=== PATIENT | female | born 1970 | race Two or more races ===

== ENCOUNTER → 2021-05-18 10:23 | Outpatient (BNVA) | payer OTHER, SELFPAY | PROVIDERS: PCP Internal Medicine; Visit Provider Nurse Practitioner Family ==

== ENCOUNTER → 2021-06-21 13:12 | Outpatient (BNVA) | payer OTHER, SELFPAY | PROVIDERS: PCP Internal Medicine; Visit Provider Nurse Practitioner Family ==

== ENCOUNTER → 2021-09-15 10:08 | Outpatient (BNVA) | payer OTHER, SELFPAY | PROVIDERS: PCP Physician Assistant Medical; Visit Provider Nurse Practitioner Family | DX: G43.909 Migraine, unspecified, not intractable, without status migrainosus (principal) ==

== ENCOUNTER → 2022-05-03 12:48 | Outpatient (BNVA) | payer OTHER, SELFPAY | PROVIDERS: PCP Physician Assistant Medical; Visit Provider Nurse Practitioner Family | DX: Z13.89 Encounter for screening for other disorder (principal) ==

== ENCOUNTER → 2022-07-26 07:58 | Outpatient (BNVA) | payer OTHER, SELFPAY | PROVIDERS: PCP Physician Assistant Medical; Visit Provider Nurse Practitioner Family | DX: Z13.89 Encounter for screening for other disorder (principal) ==

== ENCOUNTER → 2022-07-30 10:33 | Outpatient (REF) | payer OTHER, SELFPAY ==
--- NOTE | 2022-07-30 10:42 | ECG_ITS ---
Test Reason : r00.2 Blood Pressure : / mmHG Vent. Rate : 083 BPM Atrial Rate : 083 BPM P-R Int : 174 ms QRS Dur : 074 ms QT Int : 338 ms P-R-T Axes : 064 021 026 degrees QTc Int : 397 ms Normal sinus rhythm Nonspecific ST and T wave abnormality Abnormal ECG No previous ECGs available Referred By: Phyllis South Electronically Signed By:Binh Evans
== END ==
LOC: HO.CARD 10:33
PROVIDERS: PCP Physician Assistant Medical; Visit Provider Nurse Practitioner Family
DX: R00.2 Palpitations (principal)
CPT/HCPCS: 93005

== ENCOUNTER → 2022-08-07 09:27 | Outpatient (REF) | payer OTHER, SELFPAY ==
--- NOTE | 2022-08-07 09:31 | HM_ITS ---
Conclusion: 1. Patient was monitor for total period of 2 days 2. Baseline was normal sinus rhythm with average heart of 87 beats per minute 3. No significant pauses noted 4. Very rare ectopy noted 5. One SVT episode lasting 3 beats at 133 beats per minute 6. No patient reported events MTDD
== END ==
LOC: HO.CARD 09:27
PROVIDERS: PCP Physician Assistant Medical; Visit Provider Nurse Practitioner Family
DX: R00.2 Palpitations (principal); R94.31 Abnormal electrocardiogram [ECG] [EKG]
CPT/HCPCS: 93225

== ENCOUNTER → 2022-10-15 08:17 | Outpatient (BNVA) | payer OTHER, SELFPAY | PROVIDERS: PCP Physician Assistant Medical; Visit Provider Nurse Practitioner Family | DX: R00.2 Palpitations (principal) ==

== ENCOUNTER 2023-02-14 10:48 | Outpatient (AMB) | payer OTHER, SELFPAY ==
--- NOTE | 2023-02-14 10:49 | A.OFFVIS_ITS ---
Intake Vital Signs 02/14/23 10:54 Height 5 ft 4 in Weight 171 lb 8 oz BMI 29.4 BP 98/74 Blood Pressure Location Rt brachial Position Sitting Pulse 95 Pulse Source Pulse Oximeter Pulse Oximetry (%) 99 Oxygen Delivery Method Room Air Intake Visit Reasons: 4m follow up-Confirmed Intake Note: Patient presents for 4 month follow up. Patient states no issues or concerns today. Allergies Penicillins Allergy (Intermediate, Verified 02/14/23 10:56) unknown Medication List - Last Reconciled 02/14/23 by PATRICIA Her amitriptyline 100 mg PO BEDTIME baclofen 10 - 20 mg (1 - 2 x 10 mg) PO BEDTIME PRN 30 days dtoslsencb-lymvnznmzaoel-izvr 50-325-40 mg 1 tab PO q 8 hours prn 30 days cetirizine 10 mg PO DAILY PRN cholecalciferol (vitamin D3) mcg PO docusate sodium (Stool Softener) 100 mg PO DAILY galcanezumab-gnlm (Emgality Pen) 120 mg subcut ONCE 28 days hydroxyzine HCl 25 mg PO BEDTIME lactulose 10 grams PO BEDTIME levonorgestrel-ethinyl estrad 0.15 mg-30 mcg (91) (Setlakin) 1 tab PO DAILY lorazepam 0.5 mg PO DAILY PRN naproxen 500 mg PO BID riboflavin (vitamin B2) 100 mg PO DAILY sertraline 75 mg PO DAILY topiramate 50 mg (2 x 25 mg) PO DAILY 30 days venlafaxine ER 150 mg PO DAILY vitamin B complex (B Complex-Vitamin B12 tablet) 1 tab PO DAILY 30 days HPI HPI Comments History of Present Illness Details 52-yr-old female presents for f/u visit. Pt states that recent labs showed b-12 def and vit D def. She did a course of vit B-12 inj and high dose vit D- she has since transitioned to OTC b-12, vit d, and women's daily MVI. She states that since, she has been feeling better- nails are growing stronger, noting less hair loss, more energy, less lightheadedness. Her psychiatrist, Carlos ROSA, also increased her Amitriptyline from 75mg to 100mg qhs. She does admit that for a week, she accidentally took the 75mg w/ the 100mg- she only realized this when the pharmacist refused to refill the 75mg prescription. She notes she did not have any adverse effects during this time, just was able to sleep better. She is having less headaches and migraines. She continues to have good days and bad days. She wonders about doing Lasix for near vision tx- as the glasses bothers her face/nose. Her last eye exam was normal- no signs of papilledema. PFSH Surgical History Hx of cholecystectomy Family History Paternal Grandmother Ovarian cancer Social History Alcohol intake: never Patient Tobacco Use Status: Never used Tobacco Review of Systems Const All systems reviewed & are unremarkable except as noted in HPI and below Physical Exam Vital Signs: Last Vital Signs Pulse 95 02/14/23 10:54 BP 98/74 02/14/23 10:54 Pulse Ox 99 02/14/23 10:54 Oxygen Delivery Method Room Air 02/14/23 10:54 BMI result Body Mass Index 29.4 Const General: cooperative and no acute distress Orientation/consciousness: patient oriented x3 HEENT Head: Yes normocephalic Resp Effort & Inspection: normal respiratory effort and able to speak in complete sentences Neuro General: patient oriented x3, gait normal and CN's II-XI intact bilaterally Cognition (Neuro): normal cognition Motor exam (neuro): 5/5 motor strength present throughout Psych Appearance: grossly normal Mental Status: mental status grossly normal Speech and movement: Normal speech and movement present Affect: normal affect Attitude: cooperative Thought process: Normal thought process present Thought content: Normal thought content present Insight: Good insight present (Psych) Judgement: Good judgement present (Psych) Assessment & Plan Assessment & Plan (1) Migraine: Code(s): G43.909 - Migraine, unspecified, not intractable, without status migrainosus (2) Trigeminal neuralgia: Comment: Left facial, at times right facial. Failed Indomethacin trial of 225mg/day. Code(s): G50.0 - Trigeminal neuralgia (3) Idiopathic intracranial hypertension: Comment: On Topiramate. Previously failed Diamox. Code(s): G93.2 - Benign intracranial hypertension (4) Anxiety: Code(s): F41.9 - Anxiety disorder, unspecified Plan Brain MRI- stable. ? Continue Baclofen 10-20mg qhs for occipital headache and neck muscle spasm. Continue Vit B complex qam. Continue Venlafaxine per Psychiatry, this may be helping mood as well as headache symptoms. Continue Amitriptyline 100 mg at bedtime- now ordered by psych. Continue Emgality 120mg sc q month- for now. Continue topiramate 50 mg qhs Continue as needed Fioricet. Monitor cognition. F/u with psychotherapy and psychiatry. Pt again may benefit from trying neurofeedback or biodeedback tx. Future considerations- Ajovy, Botox. ? Follow-up with [facility] prn- pt not currently interested in trying a sphenopalatine ganglion block.. Patient has been advised to abstain from work through follow-up here in approximately 3-4 months. Medications: Changed From amitriptyline 75 mg (3 x 25 mg) PO BEDTIME 30 days 90 tabs 6RF To amitriptyline 100 mg PO BEDTIME Coding Level of Care Code Est Pt Level 4 (57925) Diagnoses Migraine G43.909 Trigeminal neuralgia G50.0 Idiopathic intracranial hypertension G93.2 Anxiety F41.9
[2023-02-14 10:54] VITALS: BP 98/74; PULSE 95; O2SAT 99; BMI 29.4
== END 2023-02-14 11:47 | disposition home or self-care (01) ==
PROVIDERS: PCP Physician Assistant Medical; Visit Provider Nurse Practitioner Family
DX: G43.909 Migraine, unspecified, not intractable, without status migrainosus (principal); G50.0 Trigeminal neuralgia; G93.2 Benign intracranial hypertension; F41.9 Anxiety disorder, unspecified
CPT/HCPCS: 99214

== ENCOUNTER → 2023-02-14 10:48 | Outpatient (BNVA) | payer OTHER, SELFPAY | PROVIDERS: PCP Physician Assistant Medical; Visit Provider Nurse Practitioner Family | DX: R00.2 Palpitations (principal); Q67.0 Congenital facial asymmetry; H57.10 Ocular pain, unspecified eye ==

== ENCOUNTER 2023-08-28 08:59 | Outpatient (AMB) | payer MEDICAID, SELFPAY ==
--- NOTE | 2023-08-28 09:21 | MHC.OFFVIS ---
Vital Signs 08/28/23 09:22 Height 5 ft 4 in Weight 155 lb 2 oz BMI 26.6 BP 98/58 L Blood Pressure Location Rt brachial Position Sitting Pulse 101 H Pulse Source Pulse Oximeter Pulse Oximetry (%) 98 Oxygen Delivery Method Room Air Intake Visit Reasons: 4 mnts f/u appt - Confirmed Intake Note: Patient presents for follow up0. patient wants to discuss medication change due to insurance change. Allergies Penicillins Allergy (Intermediate, Verified 08/28/23 09:23) unknown Medication List - Last Reconciled 08/28/23 by PATRICIA Her amitriptyline 100 mg PO BEDTIME baclofen 10 - 20 mg (1 - 2 x 10 mg) PO BEDTIME PRN 30 days lfywqthbqi-xxtntkdhqbgpo-xyha 50-325-40 mg 1 tab PO q 8 hours prn 30 days cetirizine 10 mg PO DAILY PRN cholecalciferol (vitamin D3) mcg PO docusate sodium (Stool Softener) 100 mg PO DAILY galcanezumab-gnlm (Emgality Pen) 120 mg subcut ONCE 28 days hydroxyzine HCl 25 mg PO BEDTIME lactulose 10 grams PO BEDTIME levonorgestrel-ethinyl estrad 0.15 mg-30 mcg (91) (Setlakin) 1 tab PO DAILY lorazepam 0.5 mg PO DAILY PRN naproxen 500 mg PO BID riboflavin (vitamin B2) 100 mg PO DAILY sertraline 75 mg PO DAILY topiramate 50 mg (2 x 25 mg) PO DAILY 30 days venlafaxine ER 150 mg PO DAILY vitamin B complex (B Complex-Vitamin B12 tablet) 1 tab PO DAILY 30 days HPI Comments Details: 52-yr-old female presents for f/u visit. Pt denies any significant interval medical changes. Patient had a change in insurance, and needs to establish care with a new PCP. Pt has not had her Emgality since Mar due to she needs new insurance PA as her insurance changed. She resumed it in early July, the Emgality is helping but not yet as effective as prior to Mar. However, she now realizes how effective it was when it was, and she was taking the Emgality regularly. She has since had an increase in her migraine days, in the last month she has had 3-4 headaches days. Noticing more right eye pain, similar to the left trigeminal neuralgia. She has not had baclofen as well, and noticing increased neck tightness and tension type headaches. She sometimes trips going up the stairs or walking. No vision changes. She continues to follow with her therapist and psychiatrist. [facility] Surgical History Hx of cholecystectomy Family History Paternal Grandmother Ovarian cancer Social History Alcohol intake: never Patient Tobacco Use Status: Never used Tobacco Physical Exam Vital Signs: Last Vital Signs Pulse 101 H 08/28/23 09:22 BP 98/58 L 08/28/23 09:22 Pulse Ox 98 08/28/23 09:22 Oxygen Delivery Method Room Air 08/28/23 09:22 BMI result Body Mass Index 26.6 Const General: cooperative and no acute distress Orientation/consciousness: patient oriented x3 Resp Effort & Inspection: normal respiratory effort and able to speak in complete sentences Neuro Other: BLE MS 5-/5 General: patient oriented x3 Cranial nerves: Yes CN's II-XII intact bilaterally Cognition (Neuro): normal cognition Deep tendon reflexes (DTR's): Right patellar reflex intensity grade: 2+ and Left patellar reflex intensity grade: 2+ Psych Appearance: grossly normal Mental Status: mental status grossly normal Speech and movement: Normal speech and movement present Affect: normal affect Attitude: cooperative Assessment & Plan Assessment & Plan (1) Migraine: Code(s): G43.909 - Migraine, unspecified, not intractable, without status migrainosus Category: Medical (2) Idiopathic intracranial hypertension: Comment: On Topiramate. Previously failed Diamox. Code(s): G93.2 - Benign intracranial hypertension Category: Medical (3) Paresthesias: Code(s): R20.2 - Paresthesia of skin Category: Medical (4) Trigeminal neuralgia: Comment: Left facial, at times right facial. Failed Indomethacin trial of 225mg/day. Code(s): G50.0 - Trigeminal neuralgia Category: Medical (5) Anxiety: Code(s): F41.9 - Anxiety disorder, unspecified Category: Medical Plan For ongoing lower extremity paresthesias and gait difficulties: Patient advised to undergo BLE EMG/NCS Reason Baclofen 10-20mg qhs for occipital headache and neck muscle spasm. Continue Vit B complex qam. Continue Venlafaxine per Psychiatry, this may be helping mood as well as headache symptoms. Continue Amitriptyline 100 mg at bedtime- now ordered by psych. Continue Emgality 120mg sc q month Continue topiramate 50 mg qhs- for h/o IIH as well Continue as needed Fioricet. Monitor cognition. F/u with psychotherapy and psychiatry. Future considerations- Delbert Tellez. Referral back to [facility] prn for increased facial pain- pt not currently interested in trying a sphenopalatine ganglion block.. Patient has been advised to abstain from work through follow-up here in approximately 6 months. Orders: Orders NE electromyogram (EMG) Today R20.2 - Paresthesia of skin, W19.XXXA - Unspecified fall, initial encounter NE nerve conduction velocity Today R20.2 - Paresthesia of skin, W19.XXXA - Unspecified fall, initial encounter Medications: Refilled baclofen 10 - 20 mg (1 - 2 x 10 mg) PO BEDTIME PRN 60 tabs 6RF muscle spasm 30 days topiramate 50 mg (2 x 25 mg) PO DAILY 60 tabs 6RF 30 days Coding Level of Care Code Est Pt Level 4 (50661) Diagnoses Migraine G43.909 Idiopathic intracranial hypertension G93.2 Paresthesias R20.2 Trigeminal neuralgia G50.0 Anxiety F41.9
[2023-08-28 09:22] VITALS: BP 98/58; PULSE 101; O2SAT 98; BMI 26.6
== END 2023-08-28 10:28 | disposition home or self-care (01) ==
PROVIDERS: PCP Physician Assistant Medical; Visit Provider Nurse Practitioner Family
DX: G43.909 Migraine, unspecified, not intractable, without status migrainosus (principal); G93.2 Benign intracranial hypertension; R20.2 Paresthesia of skin; G50.0 Trigeminal neuralgia; F41.9 Anxiety disorder, unspecified
CPT/HCPCS: 99214

== ENCOUNTER → 2023-08-28 08:59 | Outpatient (BNVA) | payer MEDICAID, SELFPAY | PROVIDERS: PCP Physician Assistant Medical; Visit Provider Nurse Practitioner Family | DX: G43.909 Migraine, unspecified, not intractable, without status migrainosus (principal); G93.2 Benign intracranial hypertension; R20.2 Paresthesia of skin; G50.0 Trigeminal neuralgia; F41.9 Anxiety disorder, unspecified; Z91.81 History of falling | CPT/HCPCS: 99212 ==

== ENCOUNTER 2023-09-18 12:20 | Outpatient (REF) | payer MEDICARE, MEDICAID, SELFPAY ==
--- NOTE | 2023-09-18 12:23 | EMG_ITS ---
Chief complaint: Reports only paresthesia on right lower extremity, denies symptoms on left side, denies back pain. Reason for referral: Evaluate for neuropathy Referred by: Phyllis South NP Procedure done: Bilateral lower extremity NCS/EMG Precautions and/or limitations: None The limb temperature was monitored continuously and remained between 32-36 degrees C during the performance of the NCS. Nerve Conduction Studies Anti Sensory Summary Table ?Stim Site NR Onset (ms) Norm Onset (ms) Peak (ms) Norm Peak (ms) O-P Amp (?V) Norm O-P Amp Site1 Site2 Delta-0 (ms) Dist (cm) Ugo (m/s) Norm Ugo (m/s) Right Sup Peron Anti Sensory (Ankle) Lateral Leg ? 2.1 3.3 <4.4 4.2 >5.0 Lateral Leg Ankle 2.1 14.0 67 Left Sural Anti Sensory (Lat Mall) Calf ? 2.9 3.5 <4.0 5.4 >5.0 Calf Lat Mall 2.9 14.0 48 Right Sural Anti Sensory (Lat Mall) Calf ? 3.0 3.7 <4.0 17.9 >5.0 Calf Lat Mall 3.0 14.0 47 Motor Summary Table ?Stim Site NR Onset (ms) Norm Onset (ms) O-P Amp (mV) Norm O-P Amp iAmp (mV) Amp (1st) (%) Site1 Site2 Delta-0 (ms) Dist (cm) Ugo (m/s) Norm Ugo (m/s) Left Peroneal Motor (Ext Dig Brev) Ankle ? 5.8 <4.0 3.1 >2.5 3.7 100.0 Ankle Ext Dig Brev 5.8 0.0 B Fib ? 12.1 3.0 3.6 96.8 B Fib Ankle 6.3 32.0 51 >40 Poplt ? 12.7 3.7 4.4 119.4 Poplt B Fib 0.6 4.0 67 >40 Right Peroneal Motor (Ext Dig Brev) Ankle ? 4.5 <4.0 4.3 >2.5 4.8 100.0 Ankle Ext Dig Brev 4.5 0.0 B Fib ? 11.4 3.3 3.6 76.7 B Fib Ankle 6.9 33.5 49 >40 Poplt ? 12.5 3.4 3.7 79.1 Poplt B Fib 1.1 5.0 45 >40 Right Peroneal TA Motor (Tib Ant) Fib Head ? 2.8 <4.2 3.0 3.3 100.0 Fib Head Tib Ant 2.8 0.0 Poplit ? 3.6 <5.7 3.1 3.4 103.3 Poplit Fib Head 0.8 5.0 62 >40.5 Left Tibial Motor (Abd Das Brev) Ankle ? 3.9 <5 15.0 >2.5 21.0 100.0 Ankle Abd Das Brev 3.9 0.0 Knee ? 12.3 10.7 14.1 71.3 Knee Ankle 8.4 39.0 46 >40 Right Tibial Motor (Abd Das Brev) Ankle ? 3.8 <5 20.9 >2.5 30.2 100.0 Ankle Abd Das Brev 3.8 0.0 Knee ? 12.3 12.7 18.3 60.8 Knee Ankle 8.5 35.0 41 >40 EMG ?Side Muscle Nerve Root Ins Act Fibs Psw Amp Dur Poly Recrt Int Pat Comment Right AbdHallucis MedPlantar S1-2 Nml Nml Nml Nml Nml 0 Nml Complete Right AntTibialis Dp Br Peron L4-5 Nml Nml Nml Nml Nml 0 Nml Complete Right PostTibialis Tibial L5, S1 Nml Nml Nml Nml Nml 0 Nml Complete Right MedGastroc Tibial S1-2 Nml Nml Nml Nml Nml 0 Nml Complete Right VastusMed Femoral L2-4 Nml Nml Nml Nml Nml 0 Nml Complete Left AbdHallucis MedPlantar S1-2 Nml Nml Nml Nml Nml 0 Nml Complete Left AntTibialis Dp Br Peron L4-5 Nml Nml Nml Nml Nml 0 Nml Complete Left PostTibialis Tibial L5, S1 Nml Nml Nml Nml Nml 0 Nml Complete Left MedGastroc Tibial S1-2 Incr 1+ 1+ Nml Nml 0 Nml Complete Left VastusMed Femoral L2-4 Nml Nml Nml Nml Nml 0 Nml Complete Paraspinal EMG ?Side Muscle Nerve Root Ins Act Fibs Psw Comment Right Lumbar Upper Rami Nml Nml Nml Right Lumbar Mid Rami Nml Nml Nml Right Lumbar Lower Rami Nml Nml Nml Left Lumbar Upper Rami Nml Nml Nml Left Lumbar Mid Rami Nml Nml Nml Left Lumbar Lower Rami Incr 1+ 1+ FINDINGS: Right peroneal nerve showed prolonged distal latency, normal amplitude and slight slowing of conduction velocity across fibular neck. Left peroneal nerve showed prolonged distal latency, normal amplitude and normal conduction velocity. All other nerves tested were within normal. Concentric needle EMG was performed in selected muscles of the bilateral lower extremity and lumbar paraspinals. Study revealed Signs of electric abnormalities as shown in the table below. Left medial gastrocnemius and left lower lumbar paraspinals showed increased insertional activity. IMPRESSION: 1. This is an abnormal study. 2. There is electrodiagnostic suggestive of left L5-S1 radiculopathy 3. 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 3. There is no electrodiagnostic evidence for peripheral neuropathy. CLINICAL COMMENT: Study showed findings on left lower extremity despite not having any symptoms on left side. 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 Further clinical correlation recommended. Thank you for your kind referral. Marielle Gudino MD, NICKI Board Certified, [place] [employer] and [employer] (ABPMR) Board Certified, [place] [employer] Electrodiagnostic [employer] (ABEM) CODIN 31600 x 2 MTDD
== END 2023-09-18 12:21 | disposition home or self-care (01) ==
LOC: HO.NEURO 12:20
PROVIDERS: Visit Provider Physical Medicine & Rehabilitation
DX: R20.2 Paresthesia of skin (principal); Z91.81 History of falling
CPT/HCPCS: 95886; 95910

== ENCOUNTER → 2023-09-18 12:23 | Outpatient (BNV) | payer MEDICARE, MEDICAID, SELFPAY | PROVIDERS: Visit Provider Physical Medicine & Rehabilitation | DX: M54.16 Radiculopathy, lumbar region (principal); S84.11XA Injury of peroneal nerve at lower leg level, right leg, initial encounter; R20.2 Paresthesia of skin | CPT/HCPCS: 95886; 95910 ==

== ENCOUNTER 2024-04-28 10:01 | Outpatient (AMB) | payer MEDICARE, MEDICAID, SELFPAY ==
--- NOTE | 2024-04-28 10:02 | A.OFFVIS_ITS ---
Vital Signs 04/28/24 10:03 Height 5 ft 4 in Weight 166 lb BMI 28.5 BP 114/70 Blood Pressure Location Rt brachial Position Sitting Pulse 91 Pulse Source Pulse Oximeter Pulse Oximetry (%) 99 Oxygen Delivery Method Room Air Intake Visit Reasons: 7 month F/U Education Research Analyst Required: No Accompanied by: Self / Same As Patient Allergies Penicillins Allergy (Intermediate, Verified 04/28/24 10:11) unknown Medication List - Last Reconciled 04/28/24 by PATRICIA Her amitriptyline 100 mg PO BEDTIME baclofen 10 - 20 mg (1 - 2 x 10 mg) PO BEDTIME PRN 30 days quqfjiucor-iykwrmjhktfhn-kvmm 50-325-40 mg 1 tab PO q 8 hours prn 30 days cetirizine 10 mg PO DAILY PRN cholecalciferol (vitamin D3) mcg PO docusate sodium (Stool Softener) 100 mg PO DAILY galcanezumab-gnlm (Emgality Pen) 240 mg (2 mL) subcut ONCE 30 days galcanezumab-gnlm (Emgality Pen) 120 mg subcut ONCE 28 days hydroxyzine HCl 25 mg PO BEDTIME lactulose 10 grams PO BEDTIME levonorgestrel-ethinyl estrad 0.15 mg-30 mcg (91) (Setlakin) 1 tab PO DAILY lorazepam 0.5 mg PO DAILY PRN naproxen 500 mg PO BID riboflavin (vitamin B2) 100 mg PO DAILY sertraline 75 mg PO DAILY topiramate 50 mg (2 x 25 mg) PO DAILY 30 days venlafaxine ER 150 mg PO DAILY vitamin B complex (B Complex-Vitamin B12 tablet) 1 tab PO DAILY 30 days Do you need a note to return to daycare/school/sports/work: No HPI Comments Details: 53-yr-old female presents for f/u visit for migraine, trigeminal neuralgia, paresthesia. Patient reports she has not been doing as well overall. Pt has been having tingling in her fingertips. She continues to have RLE tingling. She is now having BLE and low back stiffness, like the inside of her legs are dry - especially of she is sitting, standing, or laying for too long, or if she is bending over. She continues to have difficulty with stairs- prone to trip going up the stairs or walking. She denies recent muscle cramps. 09/18/2023 the EMG/NCS: Showed electrodiagnostic suggestive of left L5-S1 radiculopathy and right peroneal neuropathy across fibular neck. After review of the EMG/NCS results patient was advised to start PT, however patient states nobody ever culture. She has not had the Emgality in months- was frustrated by the insurance process. Overall her headache symptoms are worse. She is having 7 days per month of right sided eye pain, which feels like when she moves her eyes from superior medial to superior lateral, it feels like the eye is rolling over something. She is having constant left facial/ear/eye/cheek (and into the neck when severe) pain, tingling, numbness- always at least 2/10, but then will have days with up to 10/10 severe pain. She is having 12-15 migraine headache days per month, of which 10 days are disabling and she has to lay down in a dark/quiet space all day. Recently, she felt like her IIH symptoms had returned, she is having increased head pressure as well as the facial pain, and pressure in the right eye symptoms, this lasted for days, she could barely get out of bed. However it did eventually slowly resolve. She requests a refill of her Fioricet. She requests a refill of her baclofen, states this does help the neck tightness. Denies interval vision changes. Her last eye exam was 1.5-2 years ago. She continues to follow with her therapist and psychiatrist. PFSH Surgical History Hx of cholecystectomy Family History Paternal Grandmother Ovarian cancer Social History Alcohol intake: never Patient Tobacco Use Status: Never used Tobacco Physical Exam Vital Signs: Last Vital Signs Pulse 91 04/28/24 10:03 BP 114/70 04/28/24 10:03 Pulse Ox 99 04/28/24 10:03 Oxygen Delivery Method Room Air 04/28/24 10:03 BMI result Body Mass Index 28.5 Const General: cooperative and no acute distress Orientation/consciousness: patient oriented x3 Resp Effort & Inspection: normal respiratory effort and able to speak in complete sentences Neuro Other: Photophobia BLE MS 5-/5 Slow to stand, slight antalgic gait, improves with continued walking. General: patient oriented x3 Cranial nerves: Yes CN's II-XII intact bilaterally Cognition (Neuro): normal cognition Deep tendon reflexes (DTR's): Right patellar reflex intensity grade: 2+ and Left patellar reflex intensity grade: 2+ Psych Appearance: grossly normal Mental Status: mental status grossly normal Speech and movement: Clear speech present Affect: Anxious affect present Attitude: cooperative Assessment & Plan Assessment & Plan (1) Migraine: Code(s): G43.909 - Migraine, unspecified, not intractable, without status migrainosus Category: Medical (2) Idiopathic intracranial hypertension: Comment: On Topiramate. Previously failed Diamox. Code(s): G93.2 - Benign intracranial hypertension Category: Medical (3) Paresthesias: Code(s): R20.2 - Paresthesia of skin Category: Medical (4) Trigeminal neuralgia: Comment: Left facial, at times right facial. Failed Indomethacin trial of 225mg/day. Code(s): G50.0 - Trigeminal neuralgia Category: Medical (5) Anxiety: Code(s): F41.9 - Anxiety disorder, unspecified Category: Medical (6) Back pain: Code(s): M54.9 - Dorsalgia, unspecified Category: Medical (7) Bilateral knee pain: Code(s): M25.561 - Pain in right knee; M25.562 - Pain in left knee Category: Medical (8) Eye pain: Code(s): H57.10 - Ocular pain, unspecified eye Category: Medical Plan For ongoing lower extremity paresthesias and gait difficulties: Reviewed BLE EMG/NCS- left L5-S1 radiculopathy and right peroneal neuropathy across fibular neck We will check XR low back, bilateral knees. Check labs for common etiologies of arthralgias. Start PT. Upon review of above, consider referral to Orthopedics for pain management. For general headache, facial pain, trigeminal neuralgia treatment: Will request follow-up eye exam. Continue to follow-up with psychiatry and psychotherapy. For acute migraine headache treatment: Trial Sumatriptan 100mg tab, 1/2 - 1 tab (50-100mg) at onset of headache, may repeat in 2 hours. Max of 2 tabs (200mg) per 24 hours. May take sumatriptan with OTC Tylenol 650-1,000mg every 4-6 hours, Ibuprofen (liquid gels) 600mg every 6 hours, or Naproxen (liquid gels) 440mg q 12 hrs prn. Potential adverse effects of triptans, include but are not limited to nausea, fatigue, chest tightness/tingling (usually passes within a few minutes), medication overuse headaches. For now, may continue Fioricet 1 tab q.8 hours p.r.n.. Resume Baclofen 10-20mg qhs for occipital headache and neck muscle spasm. For acute last trigeminal neuralgia and facial pain: Trial home administration of Intranasal Lidocaine/Sphenopalatine Ganglion Block using 2% viscous lidocaine solution. Instructions: Self administer 1 mL of 2% viscous lidocaine solution into nasal passage on the same side as the head pain. May be administered into bilateral nasal passages if the headache is on both sides of the head. Dose may be repeated x1 in 15 minutes. Max of 4 mL per nasal passage per day Written instructions to be provided to patient. Technique: Lie down on your side curled up like a baby sleeping on its side, with your shoulder on the back of a firm pillow, and your head tilted back and rotated so you are looking up ~30 degrees. Put the syringe into the lower nostril, as far as it will comfortably go, with the tip pointing towards the outer (lateral) wall of the nostril. Inject the contents of the syringe, and then sniff the medicine so that you feel it goes to the back of the nostril, but not into the throat. If you feel burning or numbness into the eye, or if the eye tears, you know you have gotten the medicine where it needs to be. Stay lying down with your head turned for 2 ? 3 minutes. If your headache is on both sides, roll over and repeat the procedure on the other side. Stay lying down for 2-3 minutes on this side. When you sit up, whatever medicine has not been absorbed will roll back into your throat. It will taste bitter and may make your throat numb. Don?t eat or drink until the numbness has gone away ? otherwise you might swallow food or liquid into your windpipe. For migraine prevention: Continue Vit B complex qam. Continue Venlafaxine per Psychiatry, this may be helping mood as well as headache symptoms. Continue Amitriptyline 100 mg at bedtime- now ordered by psych. Resume Emgality, however as patient has been off of this for several months, she will need to resume with loading dose of 240 mg subcu x1, then 30 days resume maintenance dose of 120mg sc q month. Continue topiramate 50 mg qhs- for h/o IIH as well Previous trials: Aimovig exacerbated constipation. Migraine prevention treatment contraindications: Beta-blockers due to risk for decompensation of depression and anxiety. Qulipta due to constipation. Future considerations- Vyepti, Botox. Referral back to [facility] prn for increased facial pain- pt not currently interested in trying a sphenopalatine ganglion block.. Due to the ongoing severity patient's migraine attack and facial pain symptoms in setting of anxiety and mood disorder, patient is advised to abstain from work through follow-up here in approximately 6 months. Orders: Orders XR lumbar spine 6V w bending 04/28/24 M54.9 - Dorsalgia, unspecified XR knee LT 3V 04/28/24 M25.561 - Pain in right knee, M25.562 - Pain in left knee ROSALINO Reflex Titer and Pattern 04/28/24 M54.9 - Dorsalgia, unspecified, M25.561 - Pain in right knee, M25.562 - Pain in left knee, F41.9 - Anxiety disorder, unspecified, R20.2 - Paresthesia of skin, G50.0 - Trigeminal neuralgia, H57.10 - Ocular pain, unspecified eye Rheumatoid Factor 04/28/24 M54.9 - Dorsalgia, unspecified, M25.561 - Pain in right knee, M25.562 - Pain in left knee, F41.9 - Anxiety disorder, unspecified, R20.2 - Paresthesia of skin, G50.0 - Trigeminal neuralgia, H57.10 - Ocular pain, unspecified eye Complete Blood Count Auto Diff 04/28/24 R20.2 - Paresthesia of skin, G50.0 - Trigeminal neuralgia, H57.10 - Ocular pain, unspecified eye XR knee RT 3V 04/28/24 M25.561 - Pain in right knee, M25.562 - Pain in left kn ee Comprehensive Met. Panel 04/28/24 F41.9 - Anxiety disorder, unspecified, R20.2 - Paresthesia of skin, G50.0 - Trigeminal neuralgia, H57.10 - Ocular pain, unspecified eye Vitamin D 25-OH (D2 and D3) 04/28/24 M54.9 - Dorsalgia, unspecified, M25.561 - Pain in right knee, M25.562 - Pain in left knee, F41.9 - Anxiety disorder, unspecified Vitamin B12 and Folate 04/28/24 R20.2 - Paresthesia of skin, G50.0 - Trigeminal neuralgia, H57.10 - Ocular pain, unspecified eye Hemoglobin A1c 04/28/24 H57.10 - Ocular pain, unspecified eye, M54.9 - Dorsalgia, unspecified, G50.0 - Trigeminal neuralgia, R20.2 - Paresthesia of skin Erythrocyte Sedimentation Rate 04/28/24 M54.9 - Dorsalgia, unspecified, M25.561 - Pain in right knee, M25.562 - Pain in left knee, F41.9 - Anxiety disorder, unspecified, R20.2 - Paresthesia of skin, G50.0 - Trigeminal neuralgia, H57.10 - Ocular pain, unspecified eye CRP High Sensitivity 04/28/24 R20.2 - Paresthesia of skin, G50.0 - Trigeminal neuralgia, H57.10 - Ocular pain, unspecified eye TSH reflex Free T4 04/28/24 F41.9 - Anxiety disorder, unspecified, R20.2 - Paresthesia of skin, G50.0 - Trigeminal neuralgia, H57.10 - Ocular pain, unspecified eye Referrals Ophthalmology Referral H57.10 - Ocular pain, unspecified eye, G93.2 - Benign intracranial hypertension, G50.0 - Trigeminal neuralgia Medications: New galcanezumab-gnlm (Emgality Pen) Loading dose: 120 mg subcu injection x2 in alternate sites (total 240 mg). To be followed by maintenance dose of 120 mg subcu q.month. 240 mg (2 mL) subcut ONCE 2 mL 3RF 30 days lidocaine HCl 2% (Lidocaine Viscous) 1ml applied to left and right intranasal passage, MR x's 1 in 15 minutes. Max 4ml per nasal passage per day. 1 mL mucous membrane QID PRN 100 mL 1RF pain 30 days sumatriptan succinate 50 - 100 mg orally at onset of headache, may repeat in 2 hrs PRN; max 2 tabs per day or 4 tabs/week (may take with Ibuprofen) 12 tabs 6RF migraine headache 30 days oral dosing syringes 1 mL syringes without needle. To be used as directed with viscous lidocaine intranasal order. 100 ea 0RF Changed From lojrlwjflu-pawsdtqvlvsir-ywjo 50-325-40 mg 1 tab PO q 8 hours prn 30 days 24 tabs 3RF headache To vhvkzrguav-pyociqtxvnvrl-pbmx 50-325-40 mg 1 tab PO q 8 hours prn 24 tabs 3RF headache 30 days Coding Level of Care Code Est Pt Level 4 (39933) Complex EM visit Add On G2211 Diagnoses Migraine G43.909 Idiopathic intracranial hypertension G93.2 Paresthesias R20.2 Trigeminal neuralgia G50.0 Anxiety F41.9 Back pain M54.9 Bilateral knee pain M25.561; M25.562 Eye pain H57.10
[2024-04-28 10:03] VITALS: BP 114/70; PULSE 91; O2SAT 99; BMI 28.5
== END 2024-04-28 11:10 | disposition home or self-care (01) ==
PROVIDERS: PCP Physician Assistant Medical; Visit Provider Nurse Practitioner Family
DX: G43.909 Migraine, unspecified, not intractable, without status migrainosus (principal); G93.2 Benign intracranial hypertension; R20.2 Paresthesia of skin; G50.0 Trigeminal neuralgia; F41.9 Anxiety disorder, unspecified; M54.9 Dorsalgia, unspecified; M25.561 Pain in right knee; M25.562 Pain in left knee; H57.10 Ocular pain, unspecified eye
CPT/HCPCS: 99214; G2211

== ENCOUNTER → 2024-04-28 10:01 | Outpatient (BNVA) | payer MEDICARE, MEDICAID, SELFPAY | PROVIDERS: PCP Physician Assistant Medical; Visit Provider Nurse Practitioner Family | DX: G43.909 Migraine, unspecified, not intractable, without status migrainosus (principal); G93.2 Benign intracranial hypertension; G50.0 Trigeminal neuralgia; R20.2 Paresthesia of skin; F41.9 Anxiety disorder, unspecified; M54.9 Dorsalgia, unspecified; M25.561 Pain in right knee; M25.562 Pain in left knee; H57.10 Ocular pain, unspecified eye | CPT/HCPCS: 99212 ==

== ENCOUNTER 2024-05-07 09:07 | Outpatient (REF) | payer MEDICARE, MEDICAID, SELFPAY ==
--- NOTE | ~2024-05-07 | XR_ITS ---
CLINICAL HISTORY: M54.9 - Dorsalgia, unspecified 7 views lumbar spine Comparison: None Findings: Normal alignment. No acute fractures or dislocation. Multiple level degenerative disc and facet change. IMPRESSION: No acute findings. This document has been electronically signed by: Osman Benson MD on 05/07/2024 20:58:54
--- NOTE | ~2024-05-07 | XR_ITS ---
CLINICAL HISTORY: M25.561 - Pain in right knee 3 view right knee Comparison: None Findings: No fractures or dislocations. No significant loss of joint space, osteophytes, or erosions. No joint effusion. No radiopaque foreign body. IMPRESSION: 1. No acute findings. This document has been electronically signed by: Osman Benson MD on 05/07/2024 20:59:05
--- NOTE | ~2024-05-07 | XR_ITS ---
CLINICAL HISTORY: M25.561 - Pain in right knee 3 view left knee Comparison: None Findings: No fractures or dislocations. No significant arthritic change or erosions. No joint effusion. No radiopaque foreign body. IMPRESSION: 1. No acute findings. This document has been electronically signed by: Osman Benson MD on 05/07/2024 20:59:18
[2024-05-07 09:22] LABS: MANUAL DIFF FLAG NO
[2024-05-07 09:38] LABS: Basophils Absolute Auto 0.1 X10*3/uL (0.0-0.2); Basophils Percent Auto 1.2 % (0-2); Eosinophils Absolute Auto 0.2 X10*3/uL (0.0-0.4); Eosinophils Percent Auto 4.1 % (0-4); Hematocrit 37.2 % (37.0-47.0); Hemoglobin 12.4 g/dl (12.0-16.0); Imm Gran Abs Auto 0.01 X10*3/uL (0.00-0.03); Imm Gran Pct Auto 0.2 % (0.0-0.4); Lymphocytes Absolute Auto 1.8 X10*3/uL (1.2-4.9); Lymphocytes Percent Auto 36.1 % (20-40); Mean Corpuscular HGB Conc 33.3 g/dl (31.0-35.0); Mean Corpuscular Hemoglobin 30.2 pg (27.0-33.0); Mean Corpuscular Volume 90.7 fL (80.0-98.0); Mean Platelet Volume 8.8 fL (9.4-12.3); Monocytes Absolute Auto 0.3 X10*3/uL (0.1-1.2); Monocytes Percent Auto 6.9 % (2-11); Neutrophils Absolute Auto 2.5 x10*3/uL (2.0-8.3); Neutrophils Percent Auto 51.5 % (45-73); Platelet Count 236 X10*3/uL (160-400); Red Cell Distribution Width 13.3 % (11.0-16.0); White Blood Count 4.9 X10*3/uL (4.8-10.8)
[2024-05-07 09:45] LABS: Estimated Average Glucose 128 mg/dL; Hemoglobin A1c % 6.1 % (<6.0); Total Hemoglobin (HGBA1C) 3265.1318 umol/L
[2024-05-07 10:18] LABS: Erythrocyte Sedimentation Rate 13 MM/HR (0-20)
[2024-05-07 10:48] LABS: Alanine Aminotransferase 20 U/L (0-31); Albumin Level 4.2 g/dL (3.5-5.0); Anion Gap 11 (12-20); Aspartate Amino Transferase 18 U/L (5-31); Bilirubin Total 0.2 mg/dL (0.0-1.0); Blood Urea Nitrogen 11 mg/dL (9-16); Calcium 9.7 mg/dL (8.4-10.2); Carbon Dioxide 25 mmol/L (22-29); Chloride 110 mmol/L (96-108); Estimated Glomerular Filt Rate > 60; Glucose Random 106 mg/dL (60-115); Sodium 142 mmol/L (135-145); Total Protein 7.3 g/dL (6.5-8.0)
[2024-05-07 10:58] LABS: Rheumatoid Factor < 13.0 IU/mL (<15.0)
[2024-05-07 11:00] LABS: TSH reflex Free T4 2.12 uIU/mL (0.32-4.0)
[2024-05-07 11:11] LABS: Folate 9.7 ng/mL (> or = 4.0); Vitamin B12 848 pg/mL (200-900)
[2024-05-07 12:25] LABS: Alkaline Phosphatase 85 U/L (39-117)
[2024-05-08 18:18] LABS: CRP High Sensitivity 0.4 mg/L
[2024-05-11 07:33] LABS: Anti Nuclear Antibody Screen NEGATIVE (NEGATIVE)
[2024-05-12 14:32] LABS: Vitamin D 25-OH, D2 4 ng/mL; Vitamin D 25-OH, D3 32 ng/mL; Vitamin D 25-OH, Total 36 ng/mL (30-100)
== END 2024-05-07 09:08 | disposition home or self-care (01) ==
LOC: HO.LAB 09:07
PROVIDERS: PCP Physician Assistant Medical; Visit Provider Nurse Practitioner Family
DX: M54.9 Dorsalgia, unspecified (principal); M25.561 Pain in right knee; M25.562 Pain in left knee; F41.9 Anxiety disorder, unspecified; R20.2 Paresthesia of skin; G50.0 Trigeminal neuralgia; H57.10 Ocular pain, unspecified eye; Z13.1 Encounter for screening for diabetes mellitus
CPT/HCPCS: 36415; 72114; 73562; 80053; 82306; 82607; 82746; 83036; 84443; 85025; 85652; 86038; 86141; 86431

== ENCOUNTER → 2024-05-07 09:22 | Outpatient (BNV) | payer MEDICARE, MEDICAID, SELFPAY | PROVIDERS: PCP Physician Assistant Medical; Visit Provider Specialist | DX: M54.9 Dorsalgia, unspecified (principal); M25.561 Pain in right knee; M25.562 Pain in left knee | CPT/HCPCS: 72114; 73562 ==

== ENCOUNTER 2025-03-02 09:59 | Outpatient (AMB) | payer MEDICARE, MEDICAID, SELFPAY ==
--- NOTE | 2025-03-02 10:15 | A.OFFVIS_ITS ---
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 Accompanied by: Self / Same As Patient Allergies Penicillins Allergy (Intermediate, Verified 04/28/24 10:11) unknown Medication List - Last Reconciled 03/02/25 by PATRICIA Her amitriptyline 100 mg PO BEDTIME baclofen 10 - 20 mg (1 - 2 x 10 mg) PO BEDTIME PRN 30 days vbvgnypzun-fcwwryyxnktlk-dvfv 50-325-40 mg 1 tab PO q 8 hours prn 30 days cetirizine 10 mg PO DAILY PRN cholecalciferol (vitamin D3) mcg PO docusate sodium (Stool Softener) 100 mg PO DAILY galcanezumab-gnlm (Emgality Pen) 240 mg (2 mL) subcut ONCE 30 days galcanezumab-gnlm (Emgality Pen) 120 mg subcut ONCE 28 days hydroxyzine HCl 25 mg PO BEDTIME lactulose 10 grams PO BEDTIME levonorgestrel-ethinyl estrad 0.15 mg-30 mcg (91) (Setlakin) 1 tab PO DAILY lidocaine HCl 2% (Lidocaine Viscous) 1 mL mucous membrane QID PRN 30 days lorazepam 0.5 mg PO DAILY PRN naproxen 500 mg PO BID oral dosing syringes 1 mL syringes without needle. To be used as directed with viscous lidocaine intranasal order. riboflavin (vitamin B2) 100 mg PO DAILY sertraline 75 mg PO DAILY sumatriptan succinate 50 - 100 mg orally at onset of headache, may repeat in 2 hrs PRN; max 2 tabs per day or 4 tabs/week (may take with Ibuprofen) 30 days topiramate 50 mg (2 x 25 mg) PO DAILY 30 days venlafaxine ER 150 mg PO DAILY vitamin B complex (B Complex-Vitamin B12 tablet) 1 tab PO DAILY 30 days Do you need a note to return to daycare/school/sports/work: No HPI Comments Details: 54-yr-old female presents for f/u visit for migraine, trigeminal neuralgia, history of IIH, and paresthesia. Interval history: She reports a recent diagnosis of mild gastritis, which has been attributed to chronic stress and increase frequent use of OTC analgesics, such as naproxen, Excedrin, Tylenol. She has started trying to eat better, as her hemoglobin they see had increased up to ?6.7% ?. She has stopped taking highly sweetened coffee, corn flakes with added sugar, ice cream and chocolates, and now is trying to eat more fruits, vegetables, yogurt, etc. She reports that since the last visit, she was not able to resume Emgality, as her local [facility] pharmacy told her it was not covered by her insurance. However, per our records, her insurance has approved the Emgality indefinitely. Her psychiatrist has increased her amitriptyline to 150 mg daily. She continues to take topiramate 50 mg at bedtime-tolerating this well She did try the intranasal lidocaine 1 mL 1 time, but did not like that it numb her left in her forehead in medial cheek areas, which made her feel like she has been to the dentist. She can not recall if it helped her facial pain. She states that she feels the Fioricet is more effective than the sumatriptan. She states that her headaches and facial pain continue to occur frequently, however when worse, they are associated with worsening mood and more difficult to eat well. She still has constant left facial/ear/eye/cheek (and into the neck when severe) pain, tingling, numbness- always at least 2/10, but then will have days with up to 10/10 severe pain. She is again experiencing 15 or more migraine headache days per month, of which 10 days are disabling and she has to lay down in a dark/quiet space all day. She denies any interval headaches consistent with IIH headache Her last eye exam was few months ago, and there was no evidence for papilledema. She continues to follow with her therapist and psychiatrist. 04/28/2024, HPI: Patient reports she has not been doing as well overall. Pt has been having tingling in her fingertips. She continues to have RLE tingling. She is now having BLE and low back stiffness, like the inside of her legs are dry - especially of she is sitting, standing, or laying for too long, or if she is bending over. She continues to have difficulty with stairs- prone to trip going up the stairs or walking. She denies recent muscle cramps. 09/18/2023 the EMG/NCS: Showed electrodiagnostic suggestive of left L5-S1 radicu lopathy and right peroneal neuropathy across fibular neck. After review of the EMG/NCS results patient was advised to start PT, however patient states nobody ever culture. She has not had the Emgality in months- was frustrated by the insurance process. Overall her headache symptoms are worse. She is having 7 days per month of right sided eye pain, which feels like when she moves her eyes from superior medial to superior lateral, it feels like the eye is rolling over something. She is having constant left facial/ear/eye/cheek (and into the neck when severe) pain, tingling, numbness- always at least 2/10, but then will have days with up to 10/10 severe pain. She is having 12-15 migraine headache days per month, of which 10 days are disabling and she has to lay down in a dark/quiet space all day. Recently, she felt like her IIH symptoms had returned, she is having increased head pressure as well as the facial pain, and pressure in the right eye symptoms, this lasted for days, she could barely get out of bed. However it did eventually slowly resolve. She requests a refill of her Fioricet. She requests a refill of her baclofen, states this does help the neck tightness. Denies interval vision changes. Her last eye exam was 1.5-2 years ago. She continues to follow with her therapist and psychiatrist. [facility] History Hx of cholecystectomy Family History Paternal Grandmother Ovarian cancer Social History Alcohol intake: never Patient Tobacco Use Status: Never used Tobacco Physical Exam Const General: cooperative and no acute distress Orientation/consciousness: patient oriented x3 Resp Effort & Inspection: normal respiratory effort and able to speak in complete sentences Neuro General: patient oriented x3 Cranial nerves: Yes CN's II-XII intact bilaterally Cognition (Neuro): normal cognition Psych Appearance: grossly normal Mental Status: mental status grossly normal Speech and movement: Clear speech present Affect: Anxious affect present Attitude: cooperative Assessment & Plan Assessment & Plan (1) Chronic migraine without aura: Code(s): G43.709 - Chronic migraine without aura, not intractable, without status migrainosus Category: Medical Qualifiers: Intractability: not intractable Status migrainosus presence: without status migrainosus Qualified Code(s): G43.709 - Chronic migraine without aura, not intractable, without status migrainosus (2) Idiopathic intracranial hypertension: Comment: On Topiramate. Previously failed Diamox. Code(s): G93.2 - Benign intracranial hypertension Category: Medical (3) Trigeminal neuralgia: Comment: Left facial, at times right facial. Failed Indomethacin trial of 225mg/day. Code(s): G50.0 - Trigeminal neuralgia Category: Medical (4) Anxiety: Code(s): F41.9 - Anxiety disorder, unspecified Category: Medical Plan For general migraine, facial pain, trigeminal neuralgia, and h/o IIH management: Follow-up eye exam as scheduled Continue to follow-up with psychiatry and psychotherapy. For acute migraine headache treatment: Discontinue Sumatriptan 100mg tab order-not effective Discontinue Fioricet 1 tab q.8 hours p.r.n.- helpful, however due to the frequency of patient's headache attacks, alternate migraine specific acute treatment options should be considered instead. Trial Rizaatriptan 10mg tab, 1/2 - 1 tab (5-10mg) at onset of headache, may repeat in 2 hours. Max of 3 tabs (30mg) per 24 hours. * You may take Rizaatriptan with OTC Tylenol 650-1,000mg every 4-6 hours, Ibuprofen (liquid gels) 600mg every 6 hours, or Naproxen (liquid gels) 440mg q 12 hrs prn. * Potential adverse effects of triptans, include but are not limited to nausea, fatigue, chest tightness/tingling (usually passes within a few minutes), medication overuse headaches. Continue Baclofen 10-20mg qhs for occipital headache and neck muscle spasm. For acute last trigeminal neuralgia and facial pain: Retry home administration of Intranasal Lidocaine/Sphenopalatine Ganglion Block using 2% viscous lidocaine solution: * Retry at a lower dose in hopes of improving tolerance and ability to use consistently, in order to assess full effect. * Self administer 0.25-1 mL of 2% viscous lidocaine solution into nasal passage on the same side as the head pain. * May administer into bilateral nasal passages if the headache is on both sides of the head. * Dose may be repeated x1 in 15 minutes. * Max of 4 mL per nasal passage per day * Technique: * Lie down on your side curled up like a baby sleeping on its side, with your shoulder on the back of a firm pillow, and your head tilted back and rotated so you are looking up ~30 degrees. * Put the syringe into the lower nostril, as far as it will comfortably go, with the tip pointing towards the outer (lateral) wall of the nostril. * Inject the contents of the syringe, and then sniff the medicine so that you feel it goes to the back of the nostril, but not into the throat. If you feel burning or numbness into the eye, or if the eye tears, you know you have gotten the medicine where it needs to be. Stay lying down with your head turned for 2 ? 3 minutes. * If your headache is on both sides, roll over and repeat the procedure on the other side. Stay lying down for 2-3 minutes on this side. * When you sit up, whatever medicine has not been absorbed will roll back into your throat. It will taste bitter and may make your throat numb. Don?t eat or drink until the numbness has gone away ? otherwise you might swallow food or liquid into your windpipe. For migraine prevention: * Continue OTC Vit B complex daily in the morning. * Continue Venlafaxine per Psychiatry, this may be helping mood as well as headache symptoms. * Continue Amitriptyline 150 mg at bedtime- per Psychiatry * Resume Emgality with loading dose of 240 mg subcu x1, then in 30 days resume maintenance dose of 120mg sc q month. * Order sent to specialty pharmacy, in hopes this improves her ability to receive medication * Continue topiramate 50 mg qhs- for h/o IIH as well Previous trials: Aimovig exacerbated constipation. Migraine prevention treatment contraindications: Beta-blockers due to risk for decompensation of depression and anxiety. Qulipta due to constipation. Future considerations- Vyepti, Botox. Referral back to [facility] prn for increased facial pain- pt not currently interested in trying a sphenopalatine ganglion block.. Due to the ongoing severity patient's migraine attack and facial pain symptoms in setting of anxiety and mood disorder, patient is advised to abstain from work through follow-up here in approximately 6 months. Pt to follow-up in 6 months or sooner prn. Medications: New omeprazole 20 mg PO BID lubiprostone 24 mcg PO BID rizatriptan take 1 tab at onset of headache; if no relief may repeat 1 tab after at least 2 hrs; max = 3 tabs/24 hr orally PRN; 12 tabs 3RF migraine headache 21 days celecoxib (Celebrex) 100 - 200 mg (1 - 2 x 100 mg) PO BID PRN 60 caps 3RF pain 30 days topiramate 50 mg PO BID 60 tabs 6RF 30 days Changed From galcanezumab-gnlm Loading dose: 120 mg subcu injection x2 in alternate sites (total 240 mg). To be followed by maintenance dose of 120 mg subcu q.month. 240 mg (2 mL) subcut ONCE 30 days 2 mL 3RF G43.709 - Chronic migraine without aura, not intractable, without status migrainosus To galcanezumab-gnlm (Emgality Pen) Loading dose: 120 mg subcu injection x2 in alternate sites (total 240 mg). To be followed by maintenance dose of 120 mg subcu q.month x's 1 240 mg (2 mL) subcut QMONTH 2 mL 0RF 30 days G43.709 - Chronic migraine without aura, not intractable, without status migrainosus From galcanezumab-gnlm 120 mg subcut ONCE 28 days 1 mL 6RF G43.709 - Chronic migraine without aura, not intractable, without status migrainosus To galcanezumab-gnlm (Emgality Pen) 120 mg subcut QMONTH 3 mL 3RF 90 days G43.709 - Chronic migraine without aura, not intractable, without status migrainosus From amitriptyline 100 mg PO BEDTIME To amitriptyline 150 mg PO BEDTIME From oral dosing syringes 1 mL syringes without needle. To be used as directed with viscous lidocaine intranasal order. 100 ea 0RF To oral dosing syringes 1 mL syringes without needle. To be used as directed with viscous lidocaine intranasal order. 100 ea 0RF Refilled lidocaine HCl 2% (Lidocaine Viscous) 1ml applied to left and right intranasal passage, MR x's 1 in 15 minutes. Max 4ml per nasal passage per day. 1 mL mucous membrane QID PRN 100 mL 1RF pain 30 days baclofen 10 - 20 mg (1 - 2 x 10 mg) PO BEDTIME PRN 60 tabs 6RF muscle spasm 30 days Discontinued topiramate Discontinued Reason: Doctor's Order 50 mg (2 x 25 mg) PO DAILY 30 days 60 t abs 6RF sumatriptan succinate Discontinued Reason: Doctor's Order (0.5 - 1 x 100 mg) 50 - 100 mg orally at onset of headache, may repeat in 2 hrs PRN; max 2 tabs per day or 4 tabs/week (may take with Ibuprofen) 30 days 12 tabs 6RF migraine headache Coding Level of Care Code Est Pt Level 4 (90171) Diagnoses Chronic migraine without aura without status migrainosus, not intractable G43.709 Intractability: not intractable Status migrainosus presence: without status migrainosus Idiopathic intracranial hypertension G93.2 Trigeminal neuralgia G50.0 Anxiety F41.9
--- OUTSIDE RECORDS SUMMARY | 2025-03-02 11:29 | XMS_ITS | Clinical Summary ---
Author Organization [facility] [address] [facility] lding Address [address] [place] [address] Phone Care Team Providers Care Vamp Maker Name Role Phone Erin Messer MD Primary Care Prov ider Allergies Active Allergy Reactions Criticality Noted Date Comments Penicillin G Potassium Rash 01/24/2006 Medications amitriptyline (ELAVIL) 25 mg tablet Take 6 tablets (150 mg total) by mouth at bedtime. 11/28/19 23 Active aspirin-acetami nophen-caffeine (EXCEDRIN MIGRAINE) 250-250-65 mg per tablet Take by mouth 3 times daily as needed. Active cetirizine (ZyrTEC) 10 mg tablet Take 1 tablet (10 mg total) by mouth 1 (one) time each day. 03/11/20 15 Active cholecalciferol (VITAMIN D-3) 50 mcg (2,000 unit) tablet Take 1 tablet (2,000 Units total) by mouth 1 (one) time each day. 01/16/20 19 Active topiramate (TOPAMAX) 25 mg tablet 12/21/19 21 Active venlafaxine XR (EFFEXOR-XR) 75 mg 24 hr capsule 09/24/19 22 Active baclofen (LIORESAL) 10 mg tablet Active LORazepam (ATIVAN) 0.5 mg tablet Active ergocalciferol (VITAMIN D-2) 1,250 mcg (50,000 unit) capsule Active cyanocobalamin (VITAMIN B-12) 1,000 mcg tablet Take 1 tablet (1,000 mcg total) by mouth 1 (one) time each day. Active plecanatide (TRULANCE) 3 mg tablet Take 1 tablet (3 mg total) by mouth 1 (one) time each day. 30 tablet 3 09/23/19 Active Additional Information Patient not taking.Reported on 02/19/2025 sodium,potassiu m,mag sulfates (Suprep Bowel Prep Kit) 17.5-3.13-1.6 gram recon soln bowel prep kit oral solution Take 177ML by mouth for 2 doses. SEE INSTRUCTIONS PROVIDED BY OFFICE. 1 kit 10/07/19 Active Additional Information Patient not taking.Reported on 02/19/2025 SUMAtriptan (IMITREX) 100 mg tablet PLEASE SEE ATTACHED FOR DETAILED DIRECTIONS 09/22/19 Active hydrOXYzine HCL (ATARAX) 25 mg tablet Take 1 tablet (25 mg total) by mouth. 05/23/19 22 Active atorvastatin (LIPITOR) 20 mg tablet Take 1 tablet (20 mg total) by mouth at bedtime. 90 tablet 1 11/18/19 25 Active sod sulf-pot chloride-mag sulf 1.479-0.188- 0.225 gram tablet Take 12 each by mouth See administration instructions for 2 doses. 24 tablet 12/18/19 25 Active lubiprostone (AMITIZA) 24 mcg capsule TAKE 1 CAPSULE BY MOUTH 2 TIMES A DAY WITH MEALS. 180 capsule 12/22/19 25 Active naproxen (NAPROSYN) 500 mg tablet TAKE 1 TABLET BY MOUTH TWICE A DAY NEEDED FOR MILD PAIN 180 tablet 01/16/20 25 Active omeprazole (PriLOSEC) [address] capsuleIndicati ons:Gastroesoph ageal reflux disease, unspecified whether esophagitis present Take 1 capsule (20 mg total) by mouth 1 (one) time each day. DO NOT CRUSH OR CHEW 90 capsule 1 02/24/20 25 Active omeprazole (PriLOSEC) [address] capsule TAKE 1 CAPSULE BY MOUTH 1 TIME EACH DAY. DO NOT CRUSH OR CHEW. 90 capsule 1 12/08/19 25 025 Discontin ued(Reord er) Active Problems Problem Noted Date Diagnosed Date Controlled type 2 diabetes m ellitus without complication, without long-term current use of insulin ([facility] V24, [facility] V28) 08/19/2024 Anxiety 08/18/2024 Prediabetes 02/05/2024 Hyperlipidemia 11/28/2022 Trigeminal neuralgia 10/07/2020 Moderate episode of recurren t major depressive disorder ([facility] V24, [facility] V28) 06/03/2019 Vitamin D deficiency 01/15/2019 Chronic constipation 04/20/2018 Microscopic hematuria 03/06/2017 Overview (02/05/2024): Renal ultrasound with possible nephrocalcinosis, referred urology Vitamin B 12 deficiency 12/28/2016 Pseudotumor cerebri 10/08/2016 Migraines 09/12/2015 Overview (02/05/2024): Nl MRI 10/03/16, microvascular ischemic disease in subcortical white mater, minimal paranasal sinus disease. BPPV (benign paroxysmal positional vertigo) 03/30 Seasonal allergies 02/05/2014 Unspecified abnormal cytolog ical findings in specimens from cervix uteri 07/20/2013 Overview (02/05/2024): 06/2013 Pap Neg Cytology, Positive HR HPV #16 Plan : repeat pap one year 09/17/2014 Pap ASCU Postitive HR HPV Plan: Colpo Encounters Date Type Department Care Team Description 02/22/2025 Results Follow-Up Gastroenterology - [place] [address] [facility] 175 [facility] [address] [place] [phone] Geneva Kuo DO 02/19/2025 7:55 AM EDT Anesthesia Event [facility] Endoscopy [address] [place] [address] Cedric Evangelista DO 02/19/2025 6:57 AM EDT - 02/19/2025 11:59 PM EDT Hospital Encounter [facility] Endoscopy [address] [place] [phone] Geneva Kuo DO Korobkov, Vitaliy, DO Couture, Alison, ANGELIQUE Epigastric pain; Gastroesophageal reflux disease, unspecified whether esophagitis present Discharge Disposition: Home or Self Care 02/18/2025 Results Follow-Up Adult Medicine - [place] [address] [place] [address] Zoila Biggs PA 02/17/2025 10:00 AM EDT Office Visit Adult Medicine - [place] [address] [place], [place] [phone] Zoila Biggs PA Controlled type 2 diabetes mellitus without complication, without long-term current use of insulin ([facility] V24, [facility] V28) (Primary Dx); Vitamin B 12 deficiency; Vitamin D deficiency; Chronic constipation; Hyperlipidemia, unspecified hyperlipidemia type; Trigeminal neuralgia; Moderate episode of recurrent major depressive disorder ([facility] V24, [facility] V28); Other migraine without status migrainosus, not intractable; Anxiety 01/19/2025 9:04 AM EDT - 01/19/2025 11:59 PM EDT Hospital Encounter Radiology Department [address] [phone] Encounter for screening mammogram for breast cancer Discharge Disposition: Home or Self Care 12/21/[address] [facility] [address] [facility] [address] [phone] Geneva Kuo DO 12/17/2024 11:10 AM EDT Office Visit Gastroenterology [facility] [address] [place] [address] [phone] Angie Shaikh PA Gastroesophageal reflux disease, unspecified whether esophagitis present (Primary Dx); Indigestion; Gas bloat syndrome 12/01/2024 7:52 AM EDT - 12/01/2024 11:59 PM EDT Hospital Encounter [facility] Xray [address] [place] [phone] Epigastric pain; Gas bloat syndrome Discharge Disposition: Home or Self Care from Last 3 Months Immunizations Immunization Administration Dates Next Due COVID-19 (Moderna/Spikevax) 12yo and older 01/11 Influenza, Unspecified 01/07/2024,02/22/2022 MMR, measles mumps and rubel la Live (Priorix; M-M-R II) 12mo and older 01/26/2003 Moderna (age 6mo & older) Bi valent, COVID-19, 0.5 mL or 0.25 mL dosage 02/08/2022 Moderna SARS-CoV-2 COVID-19, mRNA, LNP-S, preservative free 04/06/2021 PPD Test 01/26/2003 Tdap Tetanus diptheria acell ular pertussis (Boostrix; Adacel) 7yo and older 08/18/2024,06/15/2010 Surgical History Surgery Date Site/Laterality Comments FOOT SURGERY PROCEDURE: IA UNLISTED PROCEDURE FOOT/TOES; COMMENT: right OTHER SURGICAL HISTORY 04/06 PROCEDURE: IA DILATION & CURETTAGE DX&/THER NONOBSTETRIC; COMMENT: Ld, for elective first trimester TOP CHOLECYSTECTOMY 1990 PROCEDURE: IA LAPAROSCOPY SURG CHOLECYSTECTOMY SECTION, LOW TRANSVERSE WISDOM TOOTH EXTRACTION Medical History Medical History Date Comments Unspecified asthma(493.90) DX:Un specified asthma(493.90); COMMENT: as child, no episodes since 1987 Other specified personal his tory presenting hazards to health(V15.89) DX:Other specifie d personal history presenting hazards to health(V15.89) Seasonal allergies 02/05/2014 DX:Seasonal a llergies BPPV (benign paroxysmal posi tional vertigo) 04/19/2014 DX:BPPV (benign paroxysmal positional vertigo) Migraines 09/12/2015 DX:Migraines Trigeminal neuralgia 10/07/2020 DX:Trigemin al neuralgia Anxiety 08/18/2024 Family History Medical History Relation Name Comments Diabetes Brother 1 Hypertension Father Asthma Maternal Grandmother Hyperte nsion, CVA Hypertension Mother Breast cancer Other ma 2nd cousin 30s Ovarian cancer Paternal Grandmother Thyroid disease Sister 1 Cervical cancer Sister 2 Diabetes Sister 3 Relation Name Status Comments Brother 1 Brother 2 Alive Father Alive Maternal Grandmother Mother Alive Other ma 2nd cousin 30s Alive Paternal Grandmother Sister 1 Sister 2 Sister 3 Sister 4 Alive Sister 5 Alive Sister 6 Alive Sister 7 Alive Social History Tobacco Use Types Packs/Day Years Used Date Smoking Tobacco: Never Smokeless Tobacco: Never Tobacco Cessation:Counseling Given: Not Answered Alcohol Use Standard Drinks/Week Comments Not Currently 0 (1 standard drink = 0.6 oz pur e alcohol) Interpersonal Safety Answer Date Record ed Physical Abuse Unrecognized value 02/19/2025 Verbal Abuse Unrecognized value 02/19/2025 Comments No Sex and Gender Information Value Date Recorded Sex Assigned at Female 12/18/2024 6:47 AM EDT Legal Sex Female 12:23 AM EST Gender Identity Female 12/18/2024 6:47 AM EDT Sexual Orientation Not on file Obstetrics History Para Term AB IAB SAB Ectopic Multiple Livin g Live Births 1 1 1 1 Date Outcome GA Total Labor Labor/2nd/3rd Weight Sex Type Anes PTL Kim A1 A5 Name Clin Term Last Filed Vital Signs Vital Sign Reading Time Taken Comments Blood Pressure 100/63 02/19/2025 8:30 AM EDT Pulse 77 02/19/2025 8:30 AM EDT Temperature 36.9 C (98.4 F) 02/19/2025 8:10 AM EDT Respiratory Rate 13 02/19/2025 8:30 AM EDT Oxygen Saturation 96% 02/19/2025 8:30 AM EDT Inhaled Oxygen Concentration - - Weight 68 kg (150 lb) 02/19/2025 7:29 AM EDT Height 162.6 cm (5' 4 ) 02/19/2025 7:29 AM EDT Body Mass Index 25.75 02/19/2025 7:29 AM EDT Plan of Treatment Upcoming Encounters Date Type Department Care Team (Late st Contact Info) Description 04/08/2025 9:50 AM EST Office Visit Gastroenterology - [address] [phone] Angie Shaikh PA [address] [address] 05/20/2025 9:45 AM EST Office Visit Adult Medicine - [place] [address] [place] [phone] Zoila Biggs PA [address] [place] [address] Health Maintenance Due Date Last Done Comments Diabetes: Annual Foot Exam 09/20/1979 Diabetes: Annual Retina Eye Exam 09/20/1979 Pneumococcal Vaccine: 50+ Years (1 of 2 - PCV) 1988 Zoster Vaccines (1 of 2) 09/20/2019 Colorectal Cancer Screening: Stool Based Tests (FOBT/FIT) 04/07/2022 Depression Screening 04/29/2024 03/18/2024 Influenza Vaccine (#1) 2024 01/07/2024, 2021 Diabetes: Blood Sugar Control Test (HGBA1C) 08/18/2025 02/17/2025, 11/17/2024, 08/18/2024, Additional history exists Diabetes: Annual Urine Albumin-Creatinine Ratio (uACR) 11/17/2025 11/17/2024 Diabetes: Annual GFR (Glomerular Filtration Rate) 02/17/2026 02/17/2025, 08/18/2024, 11/28/2023, Additional history exists Breast Cancer Screening 01/19/2027 01/20/20, 10/29/2023, 10/29/2023, Additional history exists Cervical Cancer Screening: HPV 04/03/2028 04/03/2023 Cholesterol Screening (Lipid Panel) 08/18/2029 08/18/2024, 11/28/2023, 11/28/2023 DTaP,Tdap,and Td Vaccines (3 - Td or Tdap) 08/18/2034 08/18/2024, 06/15/2010 RSV Immunization Adult Patients (1 - 1-dose 75+ series) 2044 MMR Vaccines Aged Out 01/26/2003 No longer eligi ble based on patient's age to complete this topic HIV Screening Completed 07/25/2020 Hepatitis C Screening Completed 07/25/2020 COVID-19 Vaccine Completed 01/12/2024, , 04/06/2021, Additional history exists HIB Vaccines Aged Out No longer eligi ble based on patient's age to complete this topic HPV Vaccines Aged Out No longer eligi ble based on patient's age to complete this topic Hepatitis A Vaccines Aged Out No long er eligible based on patient's age to complete this topic Hepatitis B Vaccines Discontinued IPV Vaccines Aged Out No longer eligi ble based on patient's age to complete this topic Medicare Annual Wellness Visit Discontinued Meningococcal ACWY Vaccine Aged Out N o longer eligible based on patient's age to complete this topic Meningococcal B Vaccine Aged Out No l onger eligible based on patient's age to complete this topic RSV Immunization Patients Under 20 months Aged Out No longer eligible based on patient's age to complete this topic Social Influencers of Health Screening Discontinued Varicella Vaccines Aged Out No longer eligible based on patient's age to complete this topic Goals Goal Patient Goal Type Associated Problems Recent Progress Patient-Stated? Author Autogenerat ed Goal Care Plan Autogenerated Problem No Perry Nolasco Procedures Procedure Name Priority Date/Time Associated Diagnosis Comments EGD Routine 02/19/2025 8:09 AM EDT Epigastric pain Gastroesophageal reflux disease, unspecified whether esophagitis present TISSUE EXAM Routine 02/19/2025 8:04 AM EDT Epigastric pain Gastroesophageal reflux disease, unspecified whether esophagitis present VITAMIN B12 Routine 02/17/2025 10:57 AM EDT Vitamin B 12 deficiency COMPREHENSIVE METABOLIC PANEL Routine 02/17/2025 10:57 AM EDT Hyperlipidemia, unspecified hyperlipidemia type HEMOGLOBIN A1C Routine 02/17/2025 10:57 AM EDT Controlled type 2 diabetes mellitus without complication, without long-term current use of insulin ([facility] V24, CMS/HCC V28) MG MAMMO DIGITAL SCREENING W JESSE BILAT Routine 01/19/2025 9:20 AM EDT Encounter for screening mammogram for breast cancer XR UGI W AIR CONTRAST Routine 12/01/2024 8:23 AM EDT Epigastric pain Gas bloat syndrome MICROALBUMIN CREATININE URINE RATIO Routine 11/17/2024 10:45 AM EDT Controlled type 2 diabetes mellitus without complication, without long-term current use of insulin (CMS/HCC V24, CMS/HCC V28) LIPID PANEL WITH REFLEX TO DIRECT LDL Routine 08/18/2024 11:16 AM EDT Routine general medical examination at a health care facility HM HPV Routine 04/03/2023 HEPATITIS C SCREENING Routine 07/25/2020 HIV SCREENING Routine 07/25/2020 from Last 3 Months or Most Recently Relevant to Health Maintenance Results * EGD Anesthesia - MAC; [facility] ENDOSCOPY (02/19/2025 8:09 AM EDT) Anatomical Region Laterality Modality Endoscopy 02/19/2025 7:48 AM EDT Impressions 02/19/2025 8:09 AM EDT - Normal stomach. Biopsied. - Normal examined duodenum. - Irregular Z-line. Biopsied. WATS. Recommendation: - Discharge patient to home. - Resume previous diet. - Continue present medications. Narrative 02/19/2025 8:[address] [facility] GI Patient Name: Maycol Torres Procedure Date: 02/19/2025 7:48 AM Date of : 1970 Age: 54 Gender: Female Note Status: Finalized Attending MD: Geneva Kuo DO, [id number] Procedure Date No Time: 02/19/2025 Procedure: Upper GI endoscopy Indications: Esophageal reflux, Dyspepsia Providers: Geneva Kuo DO Referring MD: Erin Messer MD Medicines: Monitored Anesthesia Care Complications: No immediate complications. Estimated blood loss: Minimal. Estimated Blood Loss: Estimated blood loss was minimal. Procedure: Pre-Anesthesia Assessment: - - Prior to the procedure, a History and Physical was performed, and patient medications and allergies were reviewed. The patient is competent. The risks and benefits of the procedure and the sedation options and risks were discussed with the patient. All questions were answered and informed consent was obtained. Patient identification and proposed procedure were verified by the physician, the nurse, the anesthesiologist, the coordinator of library services and the geophysical data technician in the pre-procedure area in the endoscopy suite. Mental Status Examination: alert and oriented. Airway Examination: normal oropharyngeal airway and neck mobility. Respiratory Examination: clear to auscultation. CV Examination: normal. Prophylactic Antibiotics: The patient does not require prophylactic antibiotics. Prior Anticoagulants: The patient has taken no anticoagulant or antiplatelet agents. ASA Grade Assessment: II - A patient with mild systemic disease. After reviewing the risks and benefits, the patient was deemed in satisfactory condition to undergo the procedure. The anesthesia plan was to use monitored anesthesia care (MAC). Immediately prior to administration of medications, the patient was re-assessed for adequacy to receive sedatives. The heart rate, respiratory rate, oxygen saturations, blood pressure, adequacy of pulmonary ventilation, and response to care were monitored throughout the procedure. The physical status of the patient was re-assessed after the procedure. After obtaining informed consent, the endoscope was passed under direct vision. Throughout the procedure, the patient's blood pressure, pulse, and oxygen saturations were monitored continuously. The Endoscope was introduced through the mouth, and advanced to the third part of duodenum. The upper GI endoscopy was accomplished without difficulty. The patient tolerated the procedure well. Findings: The Z-line was irregular and was found 34 cm from the incisors. Biopsies were taken with a cold forceps for histology. Estimated blood loss was minimal. Wide Area Transepithelial Sampling (WATS-3D Hubbard Biopsy) was performed for histology and samples sent for Computer-Assisted 3-Dimensional analysis. Estimated blood loss was minimal. The stomach was normal. Biopsies were taken with a cold forceps for histology. Estimated blood loss was minimal. The examined duodenum was normal. Procedure Code(s): --- Professional --- 10423, Esophagogastroduodenoscopy, flexible, transoral; with biopsy, single or multiple Diagnosis Code(s): --- Professional --- K21.9, Gastro-esophageal reflux disease without esophagitis CPT copyright 2020 [employer]. All rights reserved. The codes documented in this report are preliminary and upon cycle consultant review may be revised to meet current compliance requirements. GENEVA Kuo DO 02/19/2025 8:09:47 AM This report has been signed electronically.Geneva Kuo DO Number of Addenda: 0 Note Initiated On: 02/19/2025 7:48 AM Scope In: Scope Out: Endoscopy Department at [facility] - [address] [place] [phone] Procedure Note Geneva Kuo DO - 02/19/[address] [facility] GI Patient Name: Maycol Torres Procedure Date: 02/19/2025 7:48 AM Date of : 1970 Age: 54 Gender: Female Note Status: Finalized Attending MD: Geneva Kuo DO, [id number] Procedure Date No Time: 02/19/2025 Procedure: Upper GI endoscopy Indications: Esophageal reflux, Dyspepsia Providers: Geneva Kuo DO Referring MD: Erin Messer MD Medicines: Monitored Anesthesia Care Complications: No immediate complications. Estimated blood loss: Minimal. Estimated Blood Loss: Estimated blood loss was minimal. Procedure: Pre-Anesthesia Assessment: - - Prior to the procedure, a History and Physicalwas performed, and patient medications and allergieswere reviewed. The patient is competent. The risks and benefits of the procedure and the sedation optionsand risks were discussed with the patient. Allquestions were answered and informed consent was obtained. Patient identification and proposed procedure were verified by the physician, the nurse, the anesthesiologist, the coordinator of library services and thetechnician in the pre-procedure area in the endoscopy suite. Mental Status Examination: alert and oriented.Airway Examination: normal oropharyngeal airway and neck mobility. Respiratory Examination: clear to auscultation. CV Examination: normal. Prophylactic Antibiotics: The patient does not requireprophylactic antibiotics. Prior Anticoagulants: The patient has taken no anticoagulant or antiplatelet agents. ASA Grade Assessment: II - A patient with mild systemic disease. After reviewing the risks and benefits,the patient was deemed in satisfactory condition to undergo the procedure. The anesthesia plan was touse monitored anesthesia care (MAC). Immediately priorto administration of medications, the patient was re-assessed for adequacy to receive sedatives. The heart rate, respiratory rate, oxygen saturations, blood pressure, adequacy of pulmonary ventilation,and response to care were monitored throughout the procedure. The physical status of the patient was re-assessed after the procedure. After obtaining informed consent, the endoscope was passed under direct vision. Throughout theprocedure, the patient's blood pressure, pulse, and oxygen saturations were monitored continuously. TheEndoscope was introduced through the mouth, and advanced tothe third part of duodenum. The upper GI endoscopy was accomplished without difficulty. The patienttolerated the procedure well. Findings: The Z-line was irregular and was found 34 cm fromthe incisors. Biopsies were taken with a cold forcepsfor histology. Estimated blood loss was minimal. WideArea Transepithelial Sampling (WATS-3D Hubbard Biopsy) was performed for histology and samples sent for Computer-Assisted 3-Dimensional analysis. Estimated blood loss was minimal. The stomach was normal. Biopsies were taken with a cold forceps for histology. Estimated blood losswas minimal. The examined duodenum was normal. Procedure Code(s): --- Professional --- 78596, Esophagogastroduodenoscopy, flexible, transoral; with biopsy, single or multiple Diagnosis Code(s): --- Professional --- K21.9, Gastro-esophageal reflux disease without esophagitis CPT copyright 2020 [employer]. All rights reserved. The codes documented in this report are preliminary and upon cycle consultant reviewmay be revised to meet current compliance requirements. GENEVA Kuo DO 02/19/2025 8:09:47 AM This report has been signed electronically.Geneva Kuo DO Number of Addenda: 0 Note Initiated On: 02/19/2025 7:48 AM Scope In: Scope Out: Endoscopy Department at [facility] - [address] [place] [phone] IMPRESSION: - Normal stomach. Biopsied. - Normal examined duodenum. - Irregular Z-line. Biopsied. WATS. Recommendation: - Discharge patient to home. - Resume previous diet. - Continue present medications. Geneva Kuo DO GI~PROCEDURE ORDERABLES Final Re sult * Tissue exam (02/19/2025 8:04 AM EDT) Final Diagnosis A. Gastric, Body, random gastric biopsies: Gastric mucosa with mild chronic inactive gastritis. No Helicobacter type gastritis or reactive changes identified. B. Esophagus, ge junction, biopsies: Gastroesophagea l mucosa with chronic inflammation and reactive changes. No intestinal metaplasia or dysplasia identified. 02/22/2025 1:[address] [facility]) [facility] at 1322 EDT Gross Description A. Gastric, Body, random gastric biopsies: Labeled random ga, gastric, bod . Received in formalin are five marc-white mucosal tissue fragments, ranging from 0.3 cm to 0.7 cm in greatest diameter. The specimen is wrapped in paper, and submitted in toto in one cassette, five pieces, multiple levels. B. Esophagus, ge junction biopsies: Labeled ge juncti, esophagus . Received in formalin are 1 marc-white mucosal tissue fragments, measuring two 0.3 cm and 0.4 cm in greatest diameter. The specimen is wrapped in paper, and submitted in toto in one cassette, two pieces, multiple levels. KR 02/22/2025 1:22 PM EDT [facility] Disclaimer Unless otherwise specified, all tissue is 10% NB formalin fixed and paraffin embedded. 02/22/2025 1:22 PM EDT [facility] Tissue Gastric corpus structure / Unknown 02/19/2025 8:04 AM EDT 02/19/2025 10:27 AM EDT Tissue specimen (specimen) Esophageal structure / Unknown 02/19/2025 8:06 AM EDT 02/19/2025 10:27 AM EDT Geneva Kuo DO LAB PATHOLOGY ORDERABLES Final R esult [facility] [address] [place] [address], [place] [phone] * Hemoglobin A1c (02/17/2025 10:57 AM EDT) Hemoglobin A1C 6.3 <6.5 % LAB CHEMISTRY METHOD 02/17/2025 1:46 PM EDT [facility] Mean Bld Glu Estim. 134 mg/dL LAB CHEMISTRY METHOD 02/17/2025 1:46 PM EDT [facility] Blood Venous blood specimen / Unknown Venipuncture / Unknown 02/17/2025 10:57 AM EDT 02/17/2025 10:57 AM EDT Zoila ROSA LAB BLOOD ORDERABLES Final Result Performing Organization Address City/[facility]/ZIP Co de Phone Number [facility] [address] [place] [address], [place] [phone] * Vitamin B12 (02/17/2025 10:57 AM EDT) [facility] Vitamin B-12 616 250 - 900 pcg/mL LAB CHEMISTRY METHOD 02/17/2025 1:54 PM EDT [facility] Blood Venous blood specimen / Unknown Venipuncture / Unknown 02/17/2025 10:57 AM EDT 02/17/2025 10:57 AM EDT us Zoila ROSA LAB BLOOD ORDERABLES Final Result [facility] [address] [place] [address], [place] [phone] * (ABNORMAL) Comprehensive metabolic panel (02/17/2025 10:57 AM EDT) [facility] Sodium 138 133 - 145 mmol/L LAB CHEMISTRY METHOD 02/17/2025 1:54 PM [facility] Potassium 3.8 3.5 - 5.5 mmol/L LAB CHEMISTRY METHOD 02/17/2025 1:54 PM [facility] Chloride 106 96 - 110 mmol/L LAB CHEMISTRY METHOD 02/17/2025 1:54 PM [facility] CO2 27 21 - 32 mmol/L LAB CHEMISTRY METHOD 02/17/2025 1:54 PM [facility] Anion Gap 5 3 - 11 LAB CHEMISTRY METHOD 02/17/2025 1:54 PM [facility] Glucose 107(H) 70 - 100 mg/dL LAB CHEMISTRY METHOD 02/17/2025 1:54 PM [facility] BUN 13 5 - 25 mg/dL LAB CHEMISTRY METHOD 02/17/2025 1:54 PM [facility] Creatinine 0.98 0.50 - 1.10 mg/dL LAB CHEMISTRY METHOD 02/17/2025 1:54 PM EDT [facility] eGFR 68 >=60 mL/min/1. 73m2 LAB CHEMISTRY METHOD 02/17/2025 1:54 PM T [facility] Comment:Calculation based on the Chronic Kidney Disease Epidemiology Collaboration (CKD-EPI) equation refit without adjustment for race. BUN/Creatinine Ratio 13.3 LAB CHEMISTRY METHOD 02/17/2025 1:54 PM T [facility] Calcium 9.9 8.5 - 10.5 mg/dL LAB CHEMISTRY METHOD 02/17/2025 1:54 PM [facility] AST (SGOT) 13 10 - 42 unit/L LAB CHEMISTRY METHOD 02/17/2025 1:54 PM [facility] ALT (SGPT) 19 10 - 60 unit/L LAB CHEMISTRY METHOD 02/17/2025 1:54 PM [facility] Alkaline Phosphatase 111 42 - 121 unit/L LAB CHEMISTRY METHOD 02/17/2025 1:54 PM T [facility] Total Protein 7.6 6.0 - 8.0 g/dL LAB CHEMISTRY METHOD 02/17/2025 1:54 PM [facility] Albumin 4.3 3.2 - 5.0 g/dL LAB CHEMISTRY METHOD 02/17/2025 1:54 PM [facility] Total Bilirubin 0.5 0.0 - 1.4 mg/dL LAB CHEMISTRY METHOD 02/17/2025 1:54 PM T [facility] Blood Venous blood specimen / Unknown Venipuncture / Unknown 02/17/2025 10:57 AM EDT 02/17/2025 10:57 AM EDT us Zoila ROSA LAB BLOOD ORDERABLES Final Result [facility] [address] [place] [address], [place] [phone] * MG Mammo Digital Screening w Jesse bilat (01/19/2025 9:20 AM EDT) Anatomical Region Laterality Modality Breast Bilateral Mammography 01/20/2025 5:15 PM EDT Impressions 01/20/2025 5:20 PM EDT 1. No mammographic evidence of malignancy 2. Heterogeneous breast parenchyma BI-RADS CATEGORY: 2 - BENIGN RECOMMENDATION: Screening bilateral mammogram is recommended in 1 year. Mammo Location: [facility], [address] [place] [address], [id number], . -------- FINAL REPORT -------- Dictated By: Wayne Pierre Dictated Date: 01/20/2025 17:15 ET Assigned Physician: Wayne Pierre Reviewed and Electronically Signed By: Wayne Pierre Signed Date: 01/20/2025 17:20 ET Workstation ID: [id number] Transcribed By: Self Edit Transcribed Date: 01/20/2025 17:15 ET Narrative 01/20/2025 5:20 PM EDT A BILATERAL DIGITAL 3D SCREENING MAMMOGRAPHY HISTORY: Routine screening. COMPARISON: Multiple priors dating back to 09/16/2020 Technique: Bilateral full field digital mammography (3D) was performed using standard CC and MLO projections CAD was used to evaluate this mammogram. FINDINGS: Right: No suspicious masses, groups of microcalcification or areas of architectural distortion identified. Stable typically benign parenchymal asymmetries. Left: No suspicious masses, groups of microcalcification or areas of architectural distortion identified. Stable typically benign parenchymal asymmetries. BREAST DENSITY: C - The breasts are heterogeneously dense which may obscure small masses. Procedure Note Wayne Pierre MD - 01/20/2025 A BILATERAL DIGITAL 3D SCREENING MAMMOGRAPHY HISTORY: Routine screening. COMPARISON: Multiple priors dating back to 09/16/2020 Technique: Bilateral full field digital mammography (3D) was performedusing standard CC and MLO projections CAD was used to evaluate this mammogram. FINDINGS: Right: No suspicious masses, groups of microcalcification or areas ofarchitectural distortion identified. Stable typically benign parenchymalasymmetries. Left: No suspicious masses, groups of microcalcification or areas ofarchitectural distortion identified. Stable typically benign parenchymalasymmetries. BREAST DENSITY: C - The breasts are heterogeneously dense which mayobscure small masses. IMPRESSION: 1. No mammographic evidence of malignancy 2. Heterogeneous breast parenchyma BI-RADS CATEGORY: 2 - BENIGN RECOMMENDATION: Screening bilateral mammogram is recommended in 1 year. Mammo Location: [facility], [address] [place] [address], [id number], . -------- FINAL REPORT -------- Dictated By: Wayne Pierre Dictated Date: 01/20/2025 17:15 ET Assigned Physician: Wayne Pierre Reviewed and Electronically Signed By: Wayne Pierre Signed Date: 01/20/2025 17:20 ET Workstation ID: [id number] Transcribed By: Self Edit Transcribed Date: 01/20/2025 17:15 ET Erin Messer MD IMG BI PROCEDURES Final Result * XR UGI w Air Contrast (12/01/2024 8:23 AM EDT) Anatomical Region Laterality Modality Body Radiographic Alyssa ging 12/01/2024 9:02 AM EDT Impressions 12/01/2024 9:29 AM EDT Normal double contrast upper GI examination. -------- FINAL REPORT -------- Dictated By: Angelique Nicole Dictated Date: 12/01/2024 09:02 ET Assigned Physician: Osman Pemberton Reviewed and Electronically Signed By: Osman Pemberton Signed Date: 12/01/2024 09:29 ET Workstation ID: [id number] Transcribed By: Self Edit Transcribed Date: 12/01/2024 09:12 ET Resident/PA/SILVERLIGHT DEVELOPER: Angelique Nicole Narrative 12/01/2024 9:29 AM EDT FINDINGS: Double contrast UGI performed. COMPARISON: No prior upper GI imaging HISTORY: Patient is a 54-year-old female with history of bloating, epigastric pain. PHP DEVELOPER radiographs: Decorating Inspector AP radiograph of the abdomen obtained. Bowel gas pattern is nonobstructive. Visualized lung bases appear clear. Cholecystectomy clips are present. There is a 3.5 mm, 3 mm and 6 mm radiopaque opacity overlying the left upper quadrant which may represent nonobstructing renal calculi. There are mild bony degenerative changes noted of the thoracolumbar spine. FINDINGS: Effervescent crystals were administered orally. Thick and thin barium was then administered orally under fluoroscopic control. Esophagus: Normal distensibility, motility and mucosal pattern. There is no evidence of obstruction or hiatal hernia. Stomach: Normal distensibility and motility. Prompt passage of contrast from the stomach into the duodenal bulb and sweep. No gastric mass or ulceration. There is an incidentally noted 2nd segment duodenal diverticulum. Visualization of proximal small bowel is otherwise within normal limits. Gastroesophageal reflux: Unable to elicit Air Kerma: 26.74mGy Procedure Note Osman Pemberton MD - 12/01/2024 FINDINGS: Double contrast UGI performed. COMPARISON: No prior upper GI imaging HISTORY: Patient is a 54-year-old female with history of bloating,epigastric pain. PHP DEVELOPER radiographs: Decorating Inspector AP radiograph of the abdomen obtained. Bowel gaspattern is nonobstructive. Visualized lung bases appear clear.Cholecystectomy clips are present. There is a 3.5 mm, 3 mm and 6 mmradiopaque opacity overlying the left upper quadrant which may representnonobstructing renal calculi. There are mild bony degenerative changesnoted of the thoracolumbar spine. FINDINGS: Effervescent crystals were administered orally. Thick and thinbarium was then administered orally under fluoroscopic control. Esophagus: Normal distensibility, motility and mucosal pattern. There isno evidence of obstruction or hiatal hernia. Stomach: Normal distensibility and motility. Prompt passage of contrastfrom the stomach into the duodenal bulb and sweep. No gastric mass orulceration. There is an incidentally noted 2nd segment duodenaldiverticulum. Visualization of proximal small bowel is otherwise withinnormal limits. Gastroesophageal reflux: Unable to elicit Air Kerma: 26.74mGy IMPRESSION: Normal double contrast upper GI examination. -------- FINAL REPORT -------- Dictated By: Angelique Nicole Dictated Date: 12/01/2024 09:02 ET Assigned Physician: Osman Pemberton Reviewed and Electronically Signed By: Osman Pemberton Signed Date: 12/01/2024 09:29 ET Workstation ID: [id number] Transcribed By: Self Edit Transcribed Date: 12/01/2024 09:12 ET Resident/PA/SILVERLIGHT DEVELOPER: Angelique Nicole Angie ROSA IMG FLUOROSCOPY PROCEDURES Fi nal Result * Microalbumin creatinine urine ratio (11/17/2024 10:45 AM EDT) Creatinine, Urine 162.0 mg/dL LAB CHEMISTRY METHOD 11/17/2024 1:38 PM EDT [facility] Microalb, Ur 9.0 0.0 - 29.0 mg/L LAB CHEMISTRY METHOD 11/17/2024 1:38 PM EDT [facility] Microalb/Creat Ratio 6 <30 mg/g creat LAB CHEMISTRY METHOD 11/17/2024 1:38 PM EDT [facility] Urine Urine specimen from urethra / Unknown Non-blood Collection / Unknown 11/17/2024 10:45 AM EDT 11/17/2024 10:45 AM EDT Zoila ROSA LAB URINE ORDERABLES Final Result [facility] [address] [place] [address], * Lipid panel with reflex to direct LDL (08/18/2024 11:16 AM EDT) Cholesterol 161 0 - 200 mg/dL LAB CHEMISTRY METHOD 08/18/2024 3:12 PM EDT [facility] Triglycerides 97 0 - 150 mg/dL LAB CHEMISTRY METHOD 08/18/2024 3:12 PM EDT [facility] HDL 72 >=40 mg/dL LAB CHEMISTRY METHOD 08/18/2024 3:12 PM EDT [facility] LDL Calculated 70 0 - 100 mg/dL LAB CHEMISTRY METHOD 08/18/2024 3:12 PM EDT [facility] VLDL Cholesterol Ayaan 19.4 mg/dL LAB CHEMISTRY METHOD 08/18/2024 3:12 PM EDT [facility] Non HDL Chol. (LDL+VLDL) 89 <145 mg/dL LAB CHEMISTRY METHOD 08/18/2024 3:12 PM EDT [facility] Chol/HDL Ratio 2.2 0.0 - 4.4 LAB CHEMISTRY METHOD 08/18/2024 3:12 PM EDT [facility] Blood Venous blood specimen / Unknown Venipuncture / Unknown 08/18/2024 11:16 AM EDT 08/18/2024 11:19 AM EDT Erin Messer MD LAB BLOOD ORDERABL ES Final Result [facility] [address] [place] [address], * Cervical Cancer Screening: HPV (04/03/2023) [facility] Cervical Cancer Screening: HPV negative, abstracted Historical Provider HEALTH MAINTENANCE Final Result * HIV Screening (07/25/2020) [facility] HIV Screening abstracted Historical Provider HEALTH MAINTENANCE Final Result * Hepatitis C Screening (07/25/2020) [facility] Hepatitis C Screening abstracted Historical Provider HEALTH MAINTENANCE Final Result from Last 3 Months or Most Recently Relevant to Health Maintenance Additional Health Concerns Active Problems Noted Date Diagnosed Date Autogenerated Problem 01/25/2025 Insurance MEDICARE MEDICAID - [place] Care Teams Vamp Maker Relationship Specialty Start Date End Date Erin Messer MD [address] [place] [id number] PCP - General Internal Medicine 10/18/20
--- OUTSIDE RECORDS SUMMARY | 2025-03-02 11:29 | XMS_ITS ---
[facility] Care Team Organization Name Specialty Phone Email Start Date End [facility] LUDIN FONSECA Primary Care 03/06/2022 12/16/2023
--- OUTSIDE RECORDS SUMMARY | 2025-03-02 11:29 | XMS_ITS | Encounter Summary ---
Author Organization [facility] Address [address] [place] [address] Care Team Providers Care Bar Steward Name Role Phone Erin Wells MD Primary Care Prov ider Encounter Details Date Type Department Care Team ([facility] Contact Info) Description 02/18/2025 Results Follow-Up Adult [facility] [address] [place] [phone] Zoila Biggs PA [address] [place] [address] Social History Tobacco Use Types Packs/Day Years Used Date Smoking Tobacco: Never Smokeless Tobacco: Never Alcohol Use Standard Drinks/Week Comments Not Currently [...] AM EDT Sexual Orientation Not on file documented as of this encounter Plan of Treatment Upcoming Encounters Date Type Department Care Team ([facility] Contact Info) Description 04/08/2025 9:50 AM EST Office Visit Gastroenterology - [address] [phone] Angie Shaikh PA [address] [address] 05/20/2025 9:45 AM EST Office Visit Adult Medicine - [place] [address] [place] [phone] Zoila Biggs PA [address] [place] [address] documented as of this encounter Goals Goal Patient Goal Type Associated Problems Recent Progress Patient-Stated? Author Autogenerat ed Goal Care Plan Autogenerated Problem No Perry Nolasco documented as of this encounter Visit Diagnoses Not on filedocumented in this encounter Additional Health Concerns Active Problems Noted Date Diagnosed Date Autogenerated Problem 01/25/2025 Assessment Noted Time PHQ-9 Depression Total Score: 5 03/18/20 24 9:10 AM EST documented as of this encounter Care Teams Bar Steward Relationship Specialty Start Date End Date Erin Wells MD [address] [place] [id number] PCP - General Internal Medicine 10/18/20 documented as of this encounter
--- OUTSIDE RECORDS SUMMARY | 2025-03-02 11:29 | XMS_ITS | Encounter Summary ---
Author Organization [facility] Address [address] [place] [address] Care Team Providers Care Dermatology Specialist Name Role Phone Erin Wells MD Primary Care Prov ider Encounter Details Date Type Department Care Team ([facility] st Contact Info) Description 02/22/2025 Results Follow-Up Gastroenterology - [place] [address] [place] [phone] Emiliano Kuo DO [address] [place] [address] Social History Tobacco Use Types Packs/Day Years [...] on file documented as of this encounter Progress Notes * Emiliano Kuo DO - 02/22/2025 1:47 PM EDT Please let the patient know that 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 No evidence of precancerous cells or infections noted. I recommendthat she doubles up on the omeprazole to twice daily for 6 weeks before she goes down to 20 mg daily. If her symptoms persist, she should follow-up with Angie in GI clinic as instructed. Thank you. documented in this encounter Plan of Treatment Upcoming Encounters Date Type Department Care Team (Late st Contact Info) Description 04/08/2025 9:50 AM EST Office Visit Gastroenterology - [address] [facility] [address] [phone] Angie Shaikh PA [address] [address] 05/20/2025 9:45 AM EST Office Visit Adult Medicine - [place] [address] [place] [phone] Zoila Biggs PA [address] [place] [address] documented as of this encounter Goals Goal [...] documented as of this encounter Care Teams Dermatology Specialist Relationship Specialty Start Date End Date Erin Wells MD [address] [place] [address] PCP - General Internal Medicine 10/18/20 documented as of this encounter
== END 2025-03-02 10:57 | disposition home or self-care (01) ==
LOC: HO.HSMS 09:59
PROVIDERS: PCP Physician Assistant Medical; Visit Provider Nurse Practitioner Family
DX: G43.709 Chronic migraine without aura, not intractable, without status migrainosus (principal); G93.2 Benign intracranial hypertension; G50.0 Trigeminal neuralgia; F41.9 Anxiety disorder, unspecified
CPT/HCPCS: 99214

== ENCOUNTER → 2025-03-02 09:59 | Outpatient (BNVA) | payer MEDICARE, MEDICAID, SELFPAY | PROVIDERS: PCP Physician Assistant Medical; Visit Provider Nurse Practitioner Family | DX: G43.709 Chronic migraine without aura, not intractable, without status migrainosus (principal); G93.2 Benign intracranial hypertension; G50.0 Trigeminal neuralgia; F41.9 Anxiety disorder, unspecified | CPT/HCPCS: 99212 ==